=== PATIENT | female | born 1960 | race Caucasian/White ===

== ENCOUNTER 2016-12-04 15:37 | Emergency (ER) | payer SELFPAY ==
[~2016-12-04] VITALS: Ht 160 cm; Wt 69.8 kg
== END 2016-12-04 17:05 | disposition short-term general hospital (02) ==
LOC: ER 15:37
DX: J06.9 Acute upper respiratory infection, unspecified (principal); F17.210 Nicotine dependence, cigarettes, uncomplicated; Z79.84 Long term (current) use of oral hypoglycemic drugs; Z79.899 Other long term (current) drug therapy
CPT/HCPCS: J2930